=== PATIENT | male | born 1980 | race Caucasian/White ===

== ENCOUNTER 2022-10-26 18:51 | Emergency (ER) | payer SELFPAY ==
[2022-10-26 19:07] VITALS: BP 120/74; PULSE 78; RESP 20; TEMP 98.9; BMI 26.8
[2022-10-26] MEDS ORDERED: LIDOCAINE 5% TOPICAL PATCH TP ONE (20:39)
[2022-10-26] MEDS ORDERED: LIDOCAINE 5% TOPICAL PATCH ONE (20:41)
[2022-10-26] MEDS ORDERED: LIDOCAINE PATCH REMOVAL MC SCH (22:00)
== END 2022-10-26 20:46 | disposition home or self-care (01) ==
LOC: JERFT 18:51
DX: S43.101A Unspecified dislocation of right acromioclavicular joint, initial encounter (principal); R07.81 Pleurodynia; V28.09XA Other motorcycle driver injured in noncollision transport accident in nontraffic accident, initial encounter
CPT/HCPCS: 71046-TC-FY; 73030-TC-RT-FY; 99284-25